=== PATIENT | female | born 1995 | race Caucasian/White ===

== ENCOUNTER 2017-02-24 11:10 | Emergency (ER) | payer BC ==
[2017-02-24 12:48] VITALS: BP 110/72
--- NOTE | 2017-02-24 13:10 | UC ---
Throat Pain/Nasal Satnam HPI - HPI Summary HPI Summary: pt c/o sore throat, body aches X 4 days. Pt has known exposure to influenza. Pt is a student at [employer]. Pt has positive PMH for mono - History of Current Complaint Chief Complaint: UCGeneralIllness Stated Complaint: FLU-LIKE Time Seen by Provider: 02/24/17 12:44 Hx Obtained From: Patient Hx Last Menstrual Period: 02/03/17 ?: No Onset/Duration: Gradual Onset, Lasting Days - 4 Severity: Mild Associated Signs & Symptoms: Positive: Dysphagia, Other - chills Related History: Other (Noted In Comments) - known exposure to strep, - Epiglottits Risk Factors Epiglottis Risk Factors: Negative - Allergies/Home Medications Allergies/Adverse Reactions: Allergies Allergy/AdvReac Type Severity Reaction Status Date / Time No Known Allergies Allergy Verified 02/24/17 12:43 Home Medications: Home Medications Norgestimate-Eth Estradiol(NF) [Ortho Tri-Cyclen (NF)] 1 tab PO DAILY 02/24/17 [ History Confirmed 02/24/17] PMH/Surg Hx/FS Hx/Imm Hx Previously Healthy: Yes - Surgical History Surgical History: None - Family History Known Family History: Positive: Hypertension - Social History Occupation: Student Alcohol Use: Weekly Substance Use Type: None Smoking Status (MU): Never Smoked Tobacco Review of Systems Constitutional: Chills, Fatigue Skin: Negative Eyes: Negative ENT: Sore Throat Respiratory: Negative Cardiovascular: Negative Gastrointestinal: Negative Genitourinary: Negative Motor: Negative Neurovascular: Negative Musculoskeletal: Myalgia Neurological: Negative Psychological: Negative All Other Systems Reviewed And Are Negative: Yes Physical Exam Triage Information Reviewed: Yes Appearance: Well-Appearing Vital Signs: Initial Vital Signs Temp 99.7 F 02/24/17 12:44 Pulse 86 02/24/17 12:44 Resp 16 02/24/17 12:44 BP 110/72 02/24/17 12:44 Pulse Ox 100 02/24/17 12:44 Vital Signs Reviewed: Yes Eye Exam: Normal ENT Exam: Other ENT: Positive: Pharynx normal Neck exam: Normal Respiratory Exam: Normal Cardiovascular Exam: Normal Musculoskeletal Exam: Normal Neurological Exam: Normal Psychological Exam: Normal Skin Exam: Normal Throat Pain/Nasal Course/Dx - Differential Dx/Diagnosis Differential Diagnosis/HQI/PQRI: Influenza, Mononucleosis, Pharyngitis, Other - strep throat Provider Diagnoses: strep throat Discharge - Discharge Plan Condition: Stable Disposition: HOME Prescriptions: Penicillin VK TAB 500 MG(NF) [Penicillin VK 500 mg Tab(NF)] 500 mg PO Q8HR #30 tab Patient Education Materials: Strep Throat (ED) Referrals: Non Staff,Doctor [Primary Care Provider] - If Needed Additional Instructions: Please follow up with your PCP or return to clinic as needed.
== END 2017-02-24 13:23 | disposition home or self-care (01) ==
LOC: UCCORT 11:10
DX: J02.0 Streptococcal pharyngitis (principal)
CPT/HCPCS: 87651; 99212; G0463

== ENCOUNTER 2017-04-12 08:11 | Emergency (ER) | payer BC ==
[2017-04-12 08:28] VITALS: BP 102/64
--- NOTE | 2017-04-12 08:31 | UC ---
Eye Complaint HPI - HPI Summary HPI Summary: bilateral eye redness x 1 days no eye pain , no change in fever no cold sx , no photophobia - History of Current Complaint Chief Complaint: UCEye Stated Complaint: EYE COMPLAINT Time Seen by Provider: 04/12/17 08:20 Hx Obtained From: Patient Hx Last Menstrual Period: Unsure bc of BCP, currently not on BCP ?: No Onset/Duration: Gradual Onset, Lasting Days - 1, Still Present Timing: Constant Severity Initially: Moderate Severity Currently: Moderate Location of Injury: Conjunctiva Aggravating Factor(s): Nothing Alleviating Factor(s): Nothing Associated Signs And Symptoms: Positive: Drainage (Clear), Drainage (Purulent), Swelling - Allergies/Home Medications Allergies/Adverse Reactions: Allergies Allergy/AdvReac Type Severity Reaction Status Date / Time No Known Allergies Allergy Verified 04/12/17 08:16 PMH/Surg Hx/FS Hx/Imm Hx - Surgical History Surgical History: None - Family History Known Family History: Positive: Hypertension - Social History Alcohol Use: Weekly Substance Use Type: None Smoking Status (MU): Never Smoked Tobacco - Immunization History Most Recent Influenza Vaccination: 2016 Most Recent Tetanus Shot: UTD Most Recent Pneumonia Vaccination: N/A Review of Systems Constitutional: Negative Skin: Negative Eyes: Drainage, Eye Redness ENT: Negative Respiratory: Negative Cardiovascular: Negative Gastrointestinal: Negative All Other Systems Reviewed And Are Negative: Yes Physical Exam Triage Information Reviewed: Yes Appearance: Well-Appearing, No Pain Distress, Well-Nourished Vital Signs: Initial Vital Signs Temp 98 F 04/12/17 08:17 Pulse 89 04/12/17 08:17 Resp 18 04/12/17 08:17 BP 102/64 04/12/17 08:17 Pulse Ox 100 04/12/17 08:17 Vital Signs Reviewed: Yes Eyes: Positive: Conjunctiva Inflamed - bilateral eyes, Discharge - bilateral eyes ENT: Positive: Normal ENT inspection, Hearing grossly normal, Pharynx normal Neck: Positive: Supple, Nontender, No Lymphadenopathy Respiratory: Positive: Chest non-tender, Lungs clear, Normal breath sounds Cardiovascular: Positive: RRR, No Murmur, Pulses Normal Eye Complaint Course/Dx - Differential Dx/Diagnosis Provider Diagnoses: conjunctivitis Discharge - Discharge Plan Condition: Stable Disposition: HOME Prescriptions: Ciprofloxacin 0.3% OPTH.ALPA* [Cipro 0.3% Opth*] 2 drop BOTH EYES Q4H #1 btl Patient Education Materials: Conjunctivitis (ED) Referrals: Non Staff,Doctor [Primary Care Provider] - If Needed
== END 2017-04-12 08:34 | disposition home or self-care (01) ==
LOC: UCCORT 08:11
DX: H10.9 Unspecified conjunctivitis (principal)
CPT/HCPCS: 99212; G0463